=== PATIENT | male | born 1955 | race African-American/Black ===

== ENCOUNTER → 2023-12-07 | Emergency (ER) | payer BC ==
[~2023-12-07] MED LIST: ASPIRIN 325 MG TAB ONE; HYDRALAZINE HCL 20 MG/ML VIAL ONE
--- NOTE | 2023-12-07 16:31 | RAD REPORT ---
EXAM DESCRIPTION: CT - Ct Stroke Brain Wo Cont - 12/07/2023 3:59 pm CLINICAL HISTORY: STROKE ALERT COMPARISON: Head Brain Wo Cont dated 08/09/2023; Neck Angio dated 12/07/2023; Head angio dated 12/07/19 TECHNIQUE: Noncontrast head CT images were obtained without IV contrast. Multiplanar reformats were generated and reviewed. All CT scans are performed using dose optimization technique as appropriate and may include automated exposure control or mA/KV adjustment according to patient size. FINDINGS: No intracranial hemorrhage, mass, or edema. Midline structures are unremarkable. Normal ventricular caliber for age. Granados-white matter differentiation is preserved, without evidence of acute infarct. No abnormal extra- axial fluid collections. Mastoid air cells and visualized portions of the paranasal sinuses are clear. No acute bony findings. IMPRESSION: No evidence of an acute intracranial process. The findings were communicated to Alejo Corey on 12/07/2023 at 16:21 hours.
[2023-12-07 16:33] LABS: Absolute Lymphocytes (CBC) 1.4 K/uL (0.7-4.9); Hematocrit 43.3 % (39.6-49.0); Lymphocytes % 23.2 % (15.3-44.8); MCV 88.1 fL (80-100); MPV 8.3 fL (7.6-11.3); Platelets 223 thou/uL (152-406); RBC Red Blood Cell Count 4.91 M/uL (4.33-5.43)
--- NOTE | 2023-12-07 16:33 | RAD REPORT ---
EXAM DESCRIPTION: CT - Head angio - 12/07/2023 3:59 pm CLINICAL HISTORY: CRAO COMPARISON: Ct Stroke Brain Wo Cont dated 12/07/2023; Head Brain Wo Cont dated 08/09/2023; Neck Angio dated 12/07/2023 TECHNIQUE: Axial CT angiography images of the head was performed with multiplanar and maximum intens ity projection reconstructions. Images performed following intravenous administration of 100mL Isovue 370. All CT scans are performed using dose optimization technique as appropriate and may include automated exposure control or mA/KV adjustment according to patient size. FINDINGS: No evidence of large vessel occlusion. No evidence of aneurysm or dissection flap is detec meño. No flow-limiting stenosis or vascular malformation identified. Antegrade flow is seen in the vertebral arteries. The vertebral arteries are codominant. The visualized dural venous sinuses are grossly patent. IMPRESSION: No evidence of large vessel occlusion or flow-limiting stenosis.
[2023-12-07 16:52] LABS: Albumin 3.5 g/dL (3.4-5.0); Bilirubin Direct 0.1 mg/dL (0-0.2); Bilirubin Indirect, Calculated 0.3 mg/dL (0.2-0.8); Bilirubin Total 0.4 mg/dL (0.2-1.0); Magnesium 2.3 mg/dL (1.6-2.4); Potassium 3.8 mEq/L (3.5-5.1); Protein, Total 7.7 g/dL (6.4-8.2); Troponin High Sensitivity 12.6 pg/mL (<58.9)
--- NOTE | 2023-12-07 16:52 | RAD REPORT ---
EXAM DESCRIPTION: CT - Neck Angio - 12/07/2023 3:59 pm CLINICAL HISTORY: CRAO COMPARISON: No comparisons TECHNIQUE: Axial CT angiography images of the head was performed with multiplanar and maximum intens ity projection reconstructions. Images performed following intravenous administration of 100mL Isovue 370. All CT scans are performed using dose optimization technique as appropriate and may include automated exposure control or mA/KV adjustment according to patient size. Quantification of carotid stenosis, if any, is performed according to NASCET criteria. FINDINGS: A left aortic arch is identified with normal three vessel configuration of the great vesse ls. No significant flow abnormality is seen of the common carotid bilaterally. No significant stenosis is identified involving the cervical segments of both internal carotid arteri es. Normal flow along the left vertebral artery. Diminutive caliber of a vessel within the right transver se foramina canal, likely arising from the right thyrocervical trunk. No evidence of right vertebral artery opacification noted. IMPRESSION: No significant flow abnormality of the neck vessels is identified. 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 CAROTID STENOSIS REFERENCE USING NASCET CRITERIA: % ICA stenosis = (1 - narrowest ICA diameter/diameter of distal cervical ICA) x 100. Mild - <50% stenosis. Moderate - 50-69% stenosis. Severe - 70-94% stenosis. Near occlusion - 95-99% stenosis. Occluded - 100% stenosis.
--- NOTE | 2023-12-07 17:04 | RAD REPORT ---
EXAM DESCRIPTION: RADChest Single View12/07/2023 4:10 pm CLINICAL HISTORY: cva COMPARISON: Chest Single View dated 08/09/2023 TECHNIQUE: Portable AP view of the chest. FINDINGS: The lungs are clear. No pneumothorax or effusion. The cardiomediastinal contours are unre markable. IMPRESSION: No acute cardiopulmonary process.
--- NOTE | 2023-12-07 17:31 | ER ---
Nurse's Notes [facility] Name: Nagi Guy Age: 68 yrs Sex: Male : 1955 Arrival Date: 12/07/2023 Time: 15:27 Bed 19 Private MD: Diagnosis: Central retinal artery occlusion Presentation: 12/07 15:32 Chief complaint: Patient states: Loss of vision on Thursday morning - right eye ld1 completely blind. "I went to my eye doctor today and she referred me to ER.". Coronavirus screen: At this time, the client does not indicate any symptoms associated with coronavirus-19. Ebola Screen: No symptoms or risks identified at this time. Initial Sepsis Screen: Does the patient meet any 2 criteria? No. Patient's initial sepsis screen is negative. Does the patient have a suspected source of infection? No. Patient's initial sepsis screen is negative. Risk Assessment: Do you want to hurt yourself or someone else? Patient reports no desire to harm self or others. Onset of symptoms was December 07, 2023 at 15:33. 15:32 Method Of Arrival: Ambulatory ld1 15:32 Acuity: STACI 2 ld1 Triage Assessment: 15:34 General: Appears in no apparent distress. comfortable, Behavior is calm, cooperative, ld1 appropriate for age. Pain: Denies pain. EENT: No signs and/or symptoms were reported regarding the EENT system. EENT: Reports blurred vision in outer aspect of conjuctiva of right eye, iris of right eye and inner aspect of conjuctiva of right eye. Neuro: Neuro: Level of Consciousness is awake, alert, obeys commands, Oriented to person, place, time, situation. Cardiovascular: Capillary refill < 3 seconds Patient's skin is warm and dry. Respiratory: Airway is patent Respiratory effort is even, unlabored. GI: Abdomen is flat, non-distended. : No signs and/or symptoms were reported regarding the genitourinary system. Derm: No signs and/or symptoms reported regarding the dermatologic system. Musculoskeletal: No signs and/or symptoms reported regarding the musculoskeletal system. Historical: - Allergies: 15:34 No Known Allergies; ld1 - Home Meds: 15:34 None [Active]; ld1 - PMHx: 15:34 None; ld1 - PSHx: 15:34 None; ld1 - Immunization history:: Adult Immunizations up to date. - Social history:: Smoking status: Patient reports the use of cigarette tobacco products, smokes one-half pack cigarettes per day, Patient uses alcohol, on a daily basis. - Family history:: not pertinent. Screenin:00 [facility] ED Fall Risk Assessment (Adult) History of falling in the last 3 months, rs5 including since admission No falls in past 3 months (0 pts) Confusion or Disorientation No (0 pts) Intoxicated or Sedated No (0 pts) Impaired Gait No (0 pts) Mobility Assist Device Used No (0 pt) Altered Elimination No (0 pt) Score/Fall Risk Level 0 - 2 = Low Risk Oriented to surroundings, Maintained a safe environment. 16:00 Abuse screen: Denies threats or abuse. Nutritional screening: No deficits noted. rs5 Tuberculosis screening: No symptoms or risk factors identified. Assessment: 15:35 Reassessment: ERP in triage assessing patient. ld1 16:00 Reassessment: pt arrived in room. General: Appears in no apparent distress. rs5 comfortable, Behavior is calm, cooperative. Pain: Denies pain. Neuro: Level of Consciousness is awake, alert, obeys commands, Oriented to person, place, time, situation. Neuro: Reports. Cardiovascular: Heart tones S1 S2 present Rhythm is regular. Respiratory: Airway is patent Respiratory effort is even, unlabored, Respiratory pattern is regular, symmetrical, Breath sounds are clear bilaterally. GI: Abdomen is flat, non-distended, Bowel sounds present X 4 quads. Abd is soft and non tender X 4 quads. : No signs and/or symptoms were reported regarding the genitourinary system. EENT: Reports blurred vision in outer aspect of conjuctiva of right eye, iris of right eye and inner aspect of conjuctiva of right eye since 12/05/22. Pt states, "I've been having trouble seeing out of my right eye for a while but it worsened saterday morning." Denies pain. Derm: Skin is intact, Skin is dry, Skin is normal, Skin temperature is warm. Musculoskeletal: Range of motion: intact in all extremities. 17:10 Reassessment: No changes from previously documented assessment. rs5 17:47 Reassessment: Patient and/or family updated on plan of care and expected duration. Pain rs5 level reassessed. Patient is alert, oriented x 3, equal unlabored respirations, skin warm/dry/pink. Vital Signs: 15:32 Pulse 58; Resp 18; Temp 98.6(TE); Pulse Ox 98% on R/A; Weight 70.31 kg; Height 5 ft. 10 ld1 in. ; Pain 0/10; 15:32 BP 214 / 115; ld1 16:00 BP 160 / 98; Pulse 70; Resp 17; Pulse Ox 99% on R/A; rs5 16:15 BP 186 / 90; Pulse 65; Resp 17; Pulse Ox 99% on R/A; rs5 16:25 BP 167 / 84; Pulse 73; Resp 18; Pulse Ox 98% on R/A; rs5 16:53 BP 178 / 74; Pulse 81; Resp 17; Pulse Ox 99% on R/A; rs5 17:14 BP 179 / 80; Pulse 72; Resp 18; Pulse Ox 99% on R/A; rs5 17:47 BP 182 / 78; Pulse 73; Resp 18; Pulse Ox 98% on R/A; rs5 15:32 Body Mass Index 22.24 (70.31 kg, 177.8 cm) ld1 15:32 Pain Scale: Adult ld1 ED Course: 15:28 Patient arrived in ED. rg4 15:33 Triage completed. ld1 15:34 Alejo Corey MD is Attending Physician. rt 15:34 Arm band placed on right wrist. ld1 16:00 Patient has correct armband on for positive identification. Placed in gown. Bed in low rs5 position. Call light in reach. Side rails up X2. 16:01 CT Head Angio In Process Unspecified. EDMS 16:01 CT Neck Angio In Process Unspecified. EDMS 16:01 CT Stroke Brain w/o Contrast In Process Unspecified. EDMS 16:05 Inserted saline lock: 22 gauge in right forearm, using aseptic technique. rs5 16:07 Neftali Brock, MIRIAN is Primary Nurse. rs5 16:12 Stroke CXR 1 View In Process Unspecified. EDMS 17:15 No provider procedures requiring assistance completed. rs5 17:30 Louis Snell MD is Referral Physician. rt 17:47 IV discontinued, intact, bleeding controlled, No redness/swelling at site. Pressure rs5 dressing applied. Administered Medications: 16:01 Drug: hydrALAZINE IVP 20 mg IVP once Route: IVP; Site: right forearm; rs5 16:20 Follow up: Response: No adverse reaction; Blood pressure is lowered rs5 17:46 Drug: Aspirin PO 325 mg PO once Route: PO; rs5 17:46 Follow up: Response: No adverse reaction rs5 Medication: 17:15 VIS not applicable for this client. rs5 Point of Care Testing: Blood Glucose: 16:00 Blood Glucose: 90 mg/dL; rs5 Ranges: Outcome: 17:31 Discharge ordered by MD. rt 17:46 Discharged to home ambulatory, rs5 17:46 Condition: stable 17:46 Discharge instructions given to patient, Instructed on discharge instructions, follow up and referral plans. medication usage, Demonstrated understanding of instructions, follow-up care, medications, Prescriptions given X 2, 17:48 Patient left the ED. rs5 Signatures: Dispatcher [employer] EDMS Alma Martin rg4 Yajaira Graves RN RN ld1 Alejo Corey MD MD rt Neftali Brock RN RN rs5 Corrections: (The following items were deleted from the chart) 17:07 17:01 EENT: Reports blurred vision in outer aspect of conjuctiva of right eye, iris of rs5 right eye and inner aspect of conjuctiva of right eye since 12/05/22 Denies pain rs5 17:12 16:01 Reassessment: pt arrived in room. rs5 rs5 17:12 17:01 Reassessment: rs5 rs5 17:12 17:01 General: Appears in no apparent distress. comfortable, Behavior is calm, rs5 cooperative, rs5 17:12 17:01 Pain: Denies pain. rs5 rs5 17:12 17:01 Neuro: Level of Consciousness is awake, alert, obeys commands, Oriented to rs5 person, place, time, situation, rs5 17:12 17:01 Cardiovascular: Heart tones S1 S2 present Rhythm is regular rs5 rs5 17:12 17:01 Neuro: Reports rs5 rs5 17:12 17:01 Respiratory: Airway is patent Respiratory effort is even, unlabored, Respiratory rs5 pattern is regular, symmetrical, Breath sounds are clear bilaterally. rs5 17:12 17:01 GI: Abdomen is flat, non-distended, Bowel sounds present X 4 quads. Abd is soft rs5 and non tender X 4 quads. rs5 17:12 17:01 : No signs and/or symptoms were reported regarding the genitourinary system. rs5rs5 17:12 17:01 Derm: Skin is intact, Skin is dry, Skin is normal, Skin temperature is warm rs5 rs5 17:12 17:01 Musculoskeletal: Range of motion: intact in all extremities, rs5 rs5 17:12 17:01 EENT: Reports blurred vision in outer aspect of conjuctiva of right eye, iris of rs5 right eye and inner aspect of conjuctiva of right eye since 12/05/22. Pt states, "I've been having trouble seeing out of my right eye for a while but it worsened saterday morning." Denies pain rs5 17:14 17:10 BP 205 / 98; Pulse 70bpm; Resp 17bpm; Pulse Ox 99% RA; rs5 rs5 17:16 16:05 Reassessment: Provider notified of pt's elevated blood pressure . rs5 rs5 17:16 16:10 hydrALAZINE IVP 20 mg IVP in right forearm rs5 rs5
--- NOTE | 2023-12-07 17:31 | EDPHYS ---
Physician Documentation [facility] Name: Nagi Guy Age: 68 yrs Sex: Male : 1955 Arrival Date: 12/07/2023 Time: 15:27 Bed 19 Private MD: ED Physician Alejo Corey HPI: 12/07 17:08 This 68 yrs old Black Male presents to ER via Ambulatory with complaints of Loss Of rt Vision, Blood Pressure Problem. 17:08 Patient presents to the ED with decreased vision in the right eye. This been present rt since Thursday. 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 Denies any other numbness, weakness. States can see shadows on the right eye but otherwise seen. Reports vision change left eye.. Historical: - Allergies: 15:34 No Known Allergies; ld1 - Home Meds: 15:34 None [Active]; ld1 - PMHx: 15:34 None; ld1 - PSHx: 15:34 None; ld1 - Immunization history:: Adult Immunizations up to date. - Social history:: Smoking status: Patient reports the use of cigarette tobacco products, smokes one-half pack cigarettes per day, Patient uses alcohol, on a daily basis. - Family history:: not pertinent. ROS: 17:08 Constitutional: Negative for fever, chills, and weight loss, Cardiovascular: Negative rt for chest pain, palpitations, and edema, Respiratory: Negative for shortness of breath, cough, wheezing, and pleuritic chest pain, Abdomen/GI: Negative for abdominal pain, nausea, vomiting, diarrhea, and constipation, MS/Extremity: Negative for injury and deformity, Skin: Negative for injury, rash, and discoloration, Neuro: Negative for headache, weakness, numbness, tingling, and seizure, Psych: Negative for depression, anxiety, suicide ideation, homicidal ideation, and hallucinations, 17:08 Eyes: Positive for vision loss, Negative for pain, 17:08 ENT: Positive for Exam: 17:08 Constitutional: This is a well developed, well nourished patient who is awake, alert, rt and in no acute distress. Chest/axilla: Normal chest wall appearance and motion. Nontender with no deformity. No lesions are appreciated. Cardiovascular: Regular rate and rhythm with a normal S1 and S2. No gallops, murmurs, or rubs. Normal PMI, no JVD. No pulse deficits. Respiratory: Lungs have equal breath sounds bilaterally, clear to auscultation and percussion. No rales, rhonchi or wheezes noted. No increased work of breathing, no retractions or nasal flaring. Abdomen/GI: Soft, non-tender, with normal bowel sounds. No distension or tympany. No guarding or rebound. No evidence of tenderness throughout. Skin: Warm, dry with normal turgor. Normal color with no rashes, no lesions, and no evidence of cellulitis. MS/ Extremity: Pulses equal, no cyanosis. Neurovascular intact. Full, normal range of motion. Neuro: Awake and alert, GCS 15, oriented to person, place, time, and situation. Cranial nerves II-XII grossly intact. Motor strength 5/5 in all extremities. Sensory grossly intact. Cerebellar exam normal. Normal gait. Psych: Awake, alert, with orientation to person, place and time. Behavior, mood, and affect are within normal limits. 17:08 Eyes: Conjunctiva normal, extraocular muscles intact, see shadows on the right eye, not able to count fingers, left eye vision is intact. 17:08 ECG was reviewed by the Attending Physician. Vital Signs: 15:32 Pulse 58; Resp 18; Temp 98.6(TE); Pulse Ox 98% on R/A; Weight 70.31 kg; Height 5 ft. 10 ld1 in. ; Pain 0/10; 15:32 BP 214 / 115; ld1 16:00 BP 160 / 98; Pulse 70; Resp 17; Pulse Ox 99% on R/A; rs5 16:15 BP 186 / 90; Pulse 65; Resp 17; Pulse Ox 99% on R/A; rs5 16:25 BP 167 / 84; Pulse 73; Resp 18; Pulse Ox 98% on R/A; rs5 16:53 BP 178 / 74; Pulse 81; Resp 17; Pulse Ox 99% on R/A; rs5 17:14 BP 179 / 80; Pulse 72; Resp 18; Pulse Ox 99% on R/A; rs5 17:47 BP 182 / 78; Pulse 73; Resp 18; Pulse Ox 98% on R/A; rs5 15:32 Body Mass Index 22.24 (70.31 kg, 177.8 cm) ld1 15:32 Pain Scale: Adult ld1 MDM: 15:44 Patient medically screened. rt 19:52 Differential Diagnosis Central retinal artery occlusion, CVA. Data reviewed: vital rt signs, nurses notes, lab test result(s), EKG, radiologic studies. Consideration of Admission/Observation Escalation of care including admission/observation considered. I recommended that the patient given to the hospital for further stroke workup. Patient stated that he cannot admitted to the hospital due to childcare considerations. Patient was informed of risks of leaving including potential future stroke. He verbalized understanding and has decision-making capacity. Will start patient on aspirin, Plavix, statin. Instructed to follow-up with neurology or to return to the ER immediately if he changes his mind or has any worsening symptoms.. I considered the following discharge prescriptions or medication management in the emergency department Medications were administered in the Emergency Department. See MAR. Independent interpretation of the following test(s) in the Emergency Department CT Scan: My interpretation is No intracranial hemorrhage seen on my interpretation of CT scan images. Counseling: I had a detailed discussion with the patient and/or guardian regarding the historical points, exam findings, and any diagnostic results supporting the discharge/admit diagnosis, lab results, radiology results, the need for further work-up and treatment in the hospital. Response to treatment: There is no appreciated change of the patient's symptoms at this time. Refusal of service: The patient/guardian displays adequate decision making capability and despite a detailed discussion of alternatives, benefits, risks, and consequences refuses: Admission to the hospital for further work-up and treatment. 12/07 15:45 Order name: Basic Metabolic Panel; Complete Time: 17:03 rt 12/07 15:45 Order name: CBC with Diff; Complete Time: 17:03 rt 12/07 15:45 Order name: Hepatic Function; Complete Time: 17:03 rt 12/07 15:45 Order name: High Sensitivity Troponin; Complete Time: 17:03 rt 12/07 15:45 Order name: Magnesium; Complete Time: 17: rt 12/07 16:42 Order name: Glucose, Ancillary Testing; Complete Time: 17:03 EDMS 12/07 15:45 Order name: CT Head Angio; Complete Time: 17: rt 12/07 15:45 Order name: CT Neck Angio; Complete Time: 17:03 rt 12/07 15:45 Order name: CT Stroke Brain w/o Contrast; Complete Time: 17:03 rt 12/07 15:45 Order name: Stroke CXR 1 View; Complete Time: 17:08 rt 12/07 15:45 Order name: EKG; Complete Time: 15:45 rt 12/07 15:45 Order name: Accucheck; Complete Time: 16:59 rt 12/07 15:45 Order name: Cardiac monitoring; Complete Time: 16:59 rt 12/07 15:45 Order name: EKG - Nurse/Tech; Complete Time: 16:59 rt 12/07 15:45 Order name: IV Saline Lock; Complete Time: 16:59 rt 12/07 15:45 Order name: Labs collected and sent; Complete Time: 17:00 rt 12/07 15:45 Order name: NPO; Complete Time: 17:00 rt 12/07 15:45 Order name: O2 Per Protocol; Complete Time: 17:00 rt 12/07 15:45 Order name: O2 Sat Monitoring; Complete Time: 17:00 rt 12/07 15:45 Order name: Stroke Swallow Screen; Complete Time: 17:00 rt EC:08 Rate is 62 beats/min. Rhythm is regular, Normal Sinus Rhythm with No ectopy, LVH. QRS rt [place] is Normal. [place] interval is normal. QRS interval is normal. QT interval is normal. No Q waves. Administered Medications: 16:01 Drug: hydrALAZINE IVP 20 mg IVP once Route: IVP; Site: right forearm; rs5 16:20 Follow up: Response: No adverse reaction; Blood pressure is lowered rs5 17:46 Drug: Aspirin PO 325 mg PO once Route: PO; rs5 17:46 Follow up: Response: No adverse reaction rs5 Point of Care Testing: Blood Glucose: 16:00 Blood Glucose: 90 mg/dL; rs5 Ranges: Critical Glucose Levels:Adult <50 mg/dl or >400 mg/dl <40 mg/dl or >180 mg/dl Disposition Summary: 12/07/23 17:31 Discharge Ordered Notes: Location: Home rt Problem: new rt Symptoms: are unchanged rt Condition: Fair rt Diagnosis - Central retinal artery occlusion rt Followup: rt - With: Louis Snell MD - When: 2 - 3 days - Reason: Discharge Instructions: - Discharge Summary Sheet rt - Central Retinal Artery Occlusion, Adult rt Forms: - Work release form bd - Medication Reconciliation Form rt - Thank You Letter rt - Antibiotic Education rt - Prescription Opioid Use rt - Patient Portal Instructions rt - Leadership Thank You Letter rt Prescriptions: - atorvastatin 80 mg Oral tablet - take 1 tablet ORAL route daily; 30 tablet; Refills: 0, Product Selection rt Permitted - Plavix 75 mg Oral tablet - take 1 tablet ORAL route once daily; 30 tablet; Refills: 0, Product Selection rt Permitted Signatures: Dispatcher [employer] EDYajaira Kamara, RN RN ld1 Alejo Corey MD MD rt Neftali Brock RN RN rs5
[2023-12-07 18:57] VITALS: TEMP 98.6
[2023-12-07 19:35] VITALS: BP 182/78; O2SAT 98
--- NOTE | 2023-12-08 17:51 | EKG ---
Test Date: 2023-12-07 Test Time: 16:20:39 Silicator: WHIT MEASUREMENT RESULTS: Intervals: Rate: 62 OR: 204 QRSD: 94 QT: 420 QTc: 426 [place]: P: 70 OR: 204 QRS: 51 T: -54 INTERPRETIVE STATEMENTS: Normal sinus rhythm Left ventricular hypertrophy with repolarization abnormality Abnormal ECG Compared to ECG 08/09/2023 15:15:45 Early repolarization now present Sinus bradycardia no longer present First degree AV block no longer present Myocardial infarct finding no longer present ST (T wave) deviation no longer present Possible ischemia no longer present Electronically Signed On 12-08-23 17:48:43 PLANT CHIEF by Jesse Noble
== END ==
LOC: ER 15:27
DX: H34.11 Central retinal artery occlusion, right eye (principal); F17.210 Nicotine dependence, cigarettes, uncomplicated; F10.90 Alcohol use, unspecified, uncomplicated
CPT/HCPCS: 93005; 85025; 80048; 36415; 83735; 82565; 82947; 80076; 84484; 70496; 70498; 70450; 71045; 96374; 99284; Q9967; J0360